=== PATIENT | female | born 1995 | race Asian ===

== ENCOUNTER 2017-03-15 23:15 | Emergency (ER) | payer BC ==
[~2017-03-15] VITALS: Ht 160 cm; Wt 61.2 kg
[2017-03-15] MEDS ORDERED: LAMICTAL25 MG ORAL (23:40)
[2017-03-15] MEDS ORDERED: ABILIFY2 MG ORAL (23:40)
[2017-03-15] MEDS ORDERED: IBUPROFEN600 MG ORAL (23:49)
[2017-03-15 23:56] VITALS: BP 110/72
[2017-03-16 00:04] LABS: APPEARANCE,URINE CLEAR; KETONES,URINE 1+ (NEGATIVE); LEUKOCYTE ESTERASE ,URINE 1+ (NEGATIVE); NITRITE,URINE NEGATIVE (NEGATIVE); PH,URINE 7 (4.5-8.0); PROTEIN,URINE 1+ (NEGATIVE); UROBILINOGEN,URINE 1 MG/DL (0.0-1.0)
[2017-03-16 00:32] LABS: BACTERIA,URINE OCCASIONAL /HPF; RBC,URINE 0-2 /HPF (0 - 2); SQUAMOUS EPITHELIAL CELL,UR OCCASIONAL /LPF (NONE/OCC)
[2017-03-16 00:33] LABS: ICTOTEST NEGATIVE; MUCUS,URINE MODERATE /LPF (NONE/OCC)
[2017-03-16 00:52] VITALS: BP 104/70
--- NOTE | 2017-03-16 04:34 | Emergency Room Report ---
History of Present Illness General Chief Complaint: Lower Back Pain or Injury Source: Patient Present Illness HPI Patient is a 21-year-old female who presented after increased right-sided flank pain. Patient stated that she had injury after exercising. She denied any fever or dysuria. She denied any worsening of pain with ambulation. Pain was worse with movement. She had not vomiting or having fever. Allergies: Coded Allergies: No Known Allergies (Unverified , 03/15/17) Patient History Past Medical History: see triage record Last Menstrual Period: 2 weeks ago Now: No - unk Reviewed Nursing Documentation: PMH: Agreed, PSxH: Agreed Nursing Documentation-PMH Past Medical History: No Stated History Review of Systems All Other Systems: negative except mentioned in HPI Physical Exam Vital Signs Date Time Temp Pulse Resp B/P (MAP) Pulse Ox O2 Delivery O2 Flow Rate FiO2 03/15/17 23:37 98.1 79 16 110/72 98 Room Air General Appearance: well appearing, no apparent distress, alert, GCS 15 Head: normocephalic, atraumatic ENT: hearing grossly normal, normal voice Neck: full range of motion, supple Respiratory: normal inspection, lungs clear, no respiratory distress, speaking full sentences Cardiovascular #1: normal inspection, normal peripheral pulses, regular rate, rhythm Gastrointestinal: normal inspection, normal bowel sounds, non tender, soft Musculoskeletal: no calf tenderness, other - muscle tenderness to right abdominal wall Neurologic: normal gait Psychiatric: mood/affect normal Skin: no rash Medical Decision Making Diagnostic Impression: Primary Impression: Abdominal muscle strain ER Course Patient presented for abdominal pain. which occurred during exercise. Differential diagnoses included ischemic bowel, appendicitis, perforated viscus , abdominal aortic aneurysm, inferior myocardial infarction, viral gastroenteritis, muscle strain. A urine test was negative. A urinalysis was unremarkable. The patient does appear to have evidence of appendicitis as pain appears to be slightly below the ribs on the right side. The patient is advised to follow up with primary care doctor in 1-2 days. Patient is advised to return if any worsening condition or if any changes in status that are concerning. Last Vital Signs Date Time Temp Pulse Resp B/P (MAP) Pulse Ox O2 Delivery O2 Flow Rate FiO2 03/16/17 00:52 63 20 104/70 97 Room Air 03/15/17 23:56 98.1 Status: improved Disposition: HOME, SELF-CARE Condition: Stable Scripts Ibuprofen* (MOTRIN*) 600 Mg Tablet 600 MG ORAL Q8H Y for For Pain, #30 TAB 0 Refills Prov: Arden Gonzalez 03/15/17 Referrals: NON PHYSICIAN (PCP) Patient Instructions: Muscle Pain, Adult Arden Gonzalez Mar 16, 2017 04:34
== END 2017-03-16 00:52 | disposition home or self-care (01) ==
LOC: EMR 23:52
DX: S39.011A Strain of muscle, fascia and tendon of abdomen, initial encounter (principal); X50.9XXA Other and unspecified overexertion or strenuous movements or postures, initial encounter; Y93.B9 Activity, other involving muscle strengthening exercises; Y92.9 Unspecified place or not applicable
CPT/HCPCS: 81003; 81025; 99283